=== PATIENT | female | born 1990 | race Caucasian/White ===

== ENCOUNTER 2017-08-23 17:41 | Outpatient (CLI) | payer OTHER ==
[~2017-08-23] VITALS: Ht 162.6 cm; Wt 84.4 kg
[~2017-08-23 17:41] MED LIST: AUGMENTIN875 MG PO; AZATHIOPRINE50 MG PO; CLEOCIN300 MG PO; DOCUSATE SODIU100 MG PO; ENDOCET 5-3251 EACH PO; FOLIC ACID1 MG PO; IBUPROFEN800 MG PO; OXYCODONE HCL5 MG PO; PENTASA250 MG PO
[2017-08-23 18:05] VITALS: BP 129/72
[2017-08-23 19:12] VITALS: BP 125/87
[2017-08-23 20:49] VITALS: BP 138/73
[2017-08-24 07:57] VITALS: BP 129/64
[2017-08-24] MEDS ORDERED: ZANTAC150 MG PO (12:19)
[2017-08-24] MEDS ORDERED: PRENATAL TABLE1 EAC3 PO (12:19)
[2017-08-24 12:40] VITALS: BP 138/72
[2017-08-24 18:16] VITALS: BP 138/72
[2017-08-24 22:14] VITALS: BP 136/63
[2017-08-25 04:46] VITALS: BP 128/61
[2017-08-25 07:33] VITALS: BP 130/67
== END 2017-08-25 10:18 | disposition home or self-care (01) ==
LOC: LDRP-OP 17:41 → 2WEST 17:44 → LDRP-OP 10-18 10:24
DX: O41.00X0 Oligohydramnios, unspecified trimester, not applicable or unspecified (principal); Z3A.00 Weeks of gestation of pregnancy not specified
CPT/HCPCS: 59025; 76818; G0378; J0702; J7120; J7500

== ENCOUNTER 2017-08-29 10:56 | Inpatient (IN) | payer OTHER ==
[2017-08-29] VITALS (20 sets, daily range): BP systolic 116–159; BP diastolic 60–88
[~2017-08-29] VITALS: Ht 162.6 cm; Wt 84.3 kg
[~2017-08-29 10:56] MED LIST changes: +PRENATAL TABLE1 EAC3 PO; +ZANTAC150 MG PO
[2017-08-29 12:24] LABS: BASOPHIL COUNT 0.1 K/uL (0-0.1); EOSINOPHIL (%) 0.8 % (0-5); EOSINOPHIL COUNT 0.1 K/uL (0-0.3); HEMATOCRIT 33.4 % (36.0-46.0); IMMATURE GRANULOCYTE (%) 1.1 % (0.0-0.7); IMMATURE GRANULOCYTE COUNT 0.2 K/uL; INSTRUMENT ABS NEUTROPHIL CT 10.9 K/uL; LYMPHOCYTE COUNT 1.3 K/uL (1.0-2.8); MCH 23.5 PG (29.0-34.0); MCHC 31.1 G/DL (30.0-36.0); MCV 75.6 FL (83-99); MEAN PLAT.VOLUME 10.9 uM^3 (9.5-12.4); MONOCYTE (%) 4.9 % (3-12); MONOCYTE COUNT 0.6 K/uL (0-0.8); NEUTROPHIL COUNT 10.9 K/uL (1.8-6.4); PLATELET COUNT 228 K/uL (156-360); RBC DIS.WIDTH-CV 14.5 % (11.8-14.6); RBC DIS.WIDTH-SD 39.2 % (39-53); RED BLOOD COUNT 4.42 M/uL (3.80-5.20); WHITE BLOOD COUNT 13.1 K/uL (4.1-10.2)
[2017-08-29 12:50] LABS: PROBE CHECK PASS
[2017-08-29] MEDS ORDERED: IBUPROFEN800 MG PO (22:42)
[2017-08-30 00:13] VITALS: BP 142/58
[2017-08-30 01:18] VITALS: BP 141/74
[2017-08-30 07:16] VITALS: BP 106/52
[2017-08-30 15:10] VITALS: BP 136/74
[2017-08-31 08:16] VITALS: BP 127/86
== END 2017-08-31 16:48 | disposition home or self-care (01) | DRG 775 ==
LOC: LDRP-OP 10:56 → 2WEST 10:58 → LDRP-OP 10-18 13:25
PROVIDERS: Advanced Practice Midwife
PROC: 3E0P3VZ Introduction of Hormone into Female Reproductive, Percutaneous Approach (ICD-10-PCS; principal; 2017-08-29)
PROC: 10E0XZZ Delivery of Products of Conception, External Approach (ICD-10-PCS; principal; 2017-08-29)
PROC: 00HU33Z Insertion of Infusion Device into Spinal Canal, Percutaneous Approach (ICD-10-PCS; principal; 2017-08-29)
PROC: 3E0R3BZ Introduction of Anesthetic Agent into Spinal Canal, Percutaneous Approach (ICD-10-PCS; principal; 2017-08-29)
PROC: 10907ZC Drainage of Amniotic Fluid, Therapeutic from Products of Conception, Via Natural or Artificial Opening (ICD-10-PCS; principal; 2017-08-29)
DX: O41.03X0 Oligohydramnios, third trimester, not applicable or unspecified (principal); O99.824 Streptococcus B carrier state complicating childbirth; O99.62 Diseases of the digestive system complicating childbirth; K50.90 Crohn's disease, unspecified, without complications; O99.52 Diseases of the respiratory system complicating childbirth; J45.909 Unspecified asthma, uncomplicated; Z3A.37 37 weeks gestation of pregnancy; Z37.0 Single live birth
CPT/HCPCS: 85025; 87077; 87081; 87186; 87653; 90686; C1755; J2540; J3010; J7120; J7500

== ENCOUNTER 2018-02-02 14:26 | Emergency (ER) | payer OTHER ==
[~2018-02-02] VITALS: Ht 162.6 cm; Wt 76.1 kg
[2018-02-02 15:11] LABS: APPEARANCE CLEAR ((CLEAR)); BILIRUBIN NEGATIVE; BLOOD NEGATIVE; COLOR YELLOW ((YELLOW)); GLUCOSE (STRIP) NEGATIVE; KETONES 20; LEUKOCYTES NEGATIVE; NITRITE NEGATIVE; PROTEIN (STRIP) NEGATIVE; SPECIFIC GRAVITY 1.025 (1.000-1.030); UCUL ADDED? NO
[2018-02-02 15:29] LABS: ALBUMIN 4.2 g/dL (3.2-4.8); CHLORIDE 107 mEq/L (99-109); HEMATOCRIT 40.8 % (36.0-46.0); HEMOGLOBIN 13.2 G/DL (11.9-15.5); MCHC 32.4 G/DL (30.0-36.0); PLATELET COUNT 236 K/uL (156-360); POTASSIUM 3.7 mEq/L (3.7-5.4); RBC DIS.WIDTH-CV 16.7 % (11.8-14.6); RBC DIS.WIDTH-SD 43.8 % (39-53); RED BLOOD COUNT 5.51 M/uL (3.80-5.20); SODIUM 140 mEq/L (136-147); WHITE BLOOD COUNT 8.9 K/uL (4.1-10.2)
[2018-02-02 15:32] LABS: GLUCOSE 108 mg/dL (70-99); TOTAL PROTEIN 7.4 g/dL (6.4-8.3)
[2018-02-02 15:33] LABS: TOTAL BILIRUBIN 0.6 mg/dL (0.0-1.0)
[2018-02-02 15:35] LABS: ALKALINE PHOSPHATASE 70 IU/L (3-129); CREATININE 0.8 mg/dL (0.6-1.3); GFR ESTIMATE (CALCULATED) > 59 mL/min/
[2018-02-02 15:36] LABS: UREA NITROGEN (BUN) 10 mg/dL (9-23)
[2018-02-02 15:37] LABS: AST (GOT) 19 IU/L (2-34)
[2018-02-02 15:38] LABS: ALT (GPT) 19 IU/L (3-49)
[2018-02-02 15:39] LABS: LIPASE 23 U/L (1.0-51.0)
[2018-02-02 15:49] LABS: QUANTITATIVE HCG < 4.0 MIU/ML
[2018-02-02] MEDS ORDERED: BENTYL20 MG PO (16:32)
[2018-02-02 16:44] VITALS: BP 125/72
== END 2018-02-02 16:45 | disposition home or self-care (01) ==
LOC: EME 14:26
DX: R10.84 Generalized abdominal pain (principal); K50.90 Crohn's disease, unspecified, without complications; Z88.0 Allergy status to penicillin
CPT/HCPCS: 74018; 80053; 81003; 83690; 84702; 85027; 99281; 99284